=== PATIENT | male | born 1985 | race Caucasian/White ===

== ENCOUNTER 2018-04-14 10:55 | Emergency (ER) | payer SELFPAY ==
--- NOTE | 2018-04-14 11:26 | ED ---
Skin Complaint - HPI Summary HPI Summary: This patient is a 32 year old M presenting to [facility] accompanied by his with a chief complaint of a spreading, erythematous and purulent rash on the right leg that started about a week ago. The pt thinks that it may have started with a bite or poison arelis, and it first looked like lines and bubbles. The patient rates the pain 6/10 in severity. Symptoms aggravated by itching. Patient reports spreading rash, itching, and pus. The rash has also spread to the right arm. PMHx of Hep C. - History of Current Complaint Chief Complaint: EDRashSkinAbscess Time Seen by Provider: 04/14/18 11:03 Stated Complaint: RASH Hx Obtained From: Patient Onset/Duration: Started Weeks Ago - 1 week Skin Exposure Onset/Duration: Weeks Ago - 1 week Timing: Constant Onset Severity: Mild Current Severity: Moderate Pain Intensity: 6 Pain Scale Used: 0-10 Numeric Skin Location: Arm - right underarm, Leg - right Character: Swelling, Pruritus, Redness Aggravating Symptom(s): Touch - itching Associated Signs & Symptoms: Rash, Red Streaks - Allergy/Home Medications Allergies/Adverse Reactions: Allergies Allergy/AdvReac Type Severity Reaction Status Date / Time No Known Allergies Allergy Verified 04/14/18 10:58 PMH/Surg Hx/FS Hx/Imm Hx History: Denies: Hx Dialysis EENT History: Denies: Hx Deafness Infectious Disease History: Yes Infectious Disease History: Reports: Hx Hepatitis - Hep. C Denies: Traveled Outside the [place] in Last 30 Days - Family History Known Family History: Positive: Other - Hep C - Social History Alcohol Use: Daily Alcohol Amount: 2-5 beers, heavy drinker 5 months ago Substance Use Type: Reports: Marijuana Smoking Status (MU): Heavy Every Day Tobacco Smoker Review of Systems Positive: other - edema of the testicles Positive: Rash - spreading, erythematous , Other - itchy, pus All Other Systems Reviewed And Are Negative: Yes Physical Exam - Summary Physical Exam Summary: Appearance: Well appearing, no pain distress Skin: Large erythematous plaque on posterior right thigh and calf. Centralized denuding of the skin. Erythematous maculopapular rash under the right arm. Head/face: normal Eyes: EOMI, CHAD ENT: normal Neck: supple, non-tender Respiratory: CTA, breath sounds present Cardiovascular: RRR, pulses symmetrical Abdomen: non-tender, soft Bowel Sounds: present : edema of the testicles. Musculoskeletal: normal, strength/ROM intact Neuro: normal, sensory motor intact, A&Ox3 Triage Information Reviewed: Yes Vital Signs On Initial Exam: Initial Vitals Temp Pulse Resp BP Pulse Ox 98.5 F 58 18 126/60 100 04/14/18 10:56 04/14/18 10:56 04/14/18 10:56 04/14/18 10:56 04/14/18 10:56 Vital Signs Reviewed: Yes Diagnostics - Vital Signs Vital Signs Temp Pulse Resp BP Pulse Ox 04/14/18 11:01 97.8 F 54 18 118/59 99 04/14/18 10:56 98.5 F 58 18 126/60 100 - Laboratory Lab Statement: Any lab studies that have been ordered have been reviewed, and results considered in the medical decision making process. Course/Dx - Course Course Of Treatment: Patient began with what likely was poison arelis behind his right knee that was itched to superinfection. Now has some contact dermatitis in the area of the right armpit and also in the groin. He refused steroid treatment. He'll use topical hydrocortisone and Bactroban. - Diagnoses Provider Diagnoses: Contact dermatitis, Impetigo Discharge - Sign-Out/Discharge Documenting (check all that apply): Patient Departure - Discharge - Discharge Plan Condition: Good Disposition: HOME Prescriptions: Hydrocortisone 1% CREAM* [Hytone Cream 1%*] 1 applic TOPICAL TID #1 tube Mupirocin 2% OINT* [Bactroban 2 % Oint*] 1 applic TOPICAL BID #1 tube predniSONE [Prednisone 20 MG TAB] 40 mg PO DAILY #20 tablet Patient Education Materials: Impetigo (ED), Poison Arelis (ED) Referrals: [facility] [Outside] [facility] [Outside] Additional Instructions: Do not put steroid ointment on your face. Return with fever, worsening, new symptoms or other concerns. Do not stop the oral prednisone prior to 10 days. Benadryl may be taken for itching. - Billing Disposition and Condition Condition: GOOD Disposition: Home
[2018-04-14 12:30] VITALS: BP 126/60
== END 2018-04-14 12:29 | disposition home or self-care (01) ==
LOC: ED 10:55
DX: L25.9 Unspecified contact dermatitis, unspecified cause (principal); L01.00 Impetigo, unspecified; F17.200 Nicotine dependence, unspecified, uncomplicated
CPT/HCPCS: 99282

== ENCOUNTER 2018-04-15 18:43 | Emergency (ER) | payer SELFPAY ==
[2018-04-15 20:28] VITALS: BP 127/57
== END 2018-04-15 21:39 | disposition left against medical advice (07) ==
LOC: ED 18:43
DX: R21 Rash and other nonspecific skin eruption (principal); Z53.21 Procedure and treatment not carried out due to patient leaving prior to being seen by health care provider